=== PATIENT | male | born 1985 ===

== ENCOUNTER 2024-06-18 11:26 | Inpatient (IN) | payer OTHER ==
[~2024-06-18] VITALS: Ht 180.3 cm; Wt 93.9 kg
[~2024-06-18 11:26] MED LIST: CIPROFLOXACIN750 MG PO; CLONAZEPAM1 MG PO; DOCUSATE SODIU100 MG PO; GABAPENTIN800 MG PO; LYRICA50 MG PO; PERCOCET 5/3251 TAB PO; TRAMADOL HCL50 MG PO; ZANTAC300 MG PO
[2024-06-18] MEDS ORDERED: CELEBREX100 MG PO (12:13)
[2024-06-18] MEDS ORDERED: KETO10TA2 PO (12:14)
[2024-06-30] MEDS ORDERED: 0.9 % SODIUM CHLORIDE 1,000 ML IV SCH (07:15)
[2024-06-30] MEDS ORDERED: PROMETHAZINE HCL 50 MG/ML AMPUL IM PRN (07:15)
[2024-06-30] MEDS ORDERED: ENALAPRILAT DIHYDRATE 1.25 MG/ML VIAL IV PRN (07:15)
[2024-06-30] MEDS ORDERED: MEDROLPACK PO (07:26)
[2024-06-30] MEDS ORDERED: CEFAZOLIN SODIUM 1,000 MG VIAL ONE ×2 (07:26→11:02)
[2024-06-30] MEDS ORDERED: VANCOMYCIN HCL 1,000 MG VIAL ONE (07:26)
[2024-06-30] MEDS ORDERED: ACETAMINOPHEN-1 EAC2 PO (07:26)
[2024-06-30] MEDS ORDERED: COLACE100 MG PO (07:27)
[2024-06-30] MEDS ORDERED: ZOFRAN8 MG PO (07:27)
[2024-06-30] MEDS ORDERED: AMOX-CLAV 875-1 EACH PO (07:27)
[2024-06-30] MEDS ORDERED: HEMOSTATIC MATRIX WITH THROMBIN KIT TOP ONE (07:27)
[2024-06-30] MEDS ORDERED: LYRICA150 MG PO (07:28)
[2024-06-30] MEDS ORDERED: METHYLPREDNISOLONE ACETATE 80 MG/ML VIAL ONE (07:51)
[2024-06-30] MEDS ORDERED: DOCUSATE SODIUM 100MG CAP PO SCH (09:00)
[2024-06-30] MEDS ORDERED: CEFAZOLIN SODIUM 1,000 MG in 0.9 % SODIUM CHLORIDE 50 ML IV SCH (09:00)
[2024-06-30] MEDS ORDERED: FAMOtidine 20 MG TABLET PO SCH (09:00)
[2024-06-30] MEDS ORDERED: MORPHINE SULFATE 4 MG/ML VIAL IV SCH (09:00)
[2024-06-30] MEDS ORDERED: VANCOMYCIN HCL 1,000 MG VIAL IR ONE ×2 (09:00)
[2024-06-30] MEDS ORDERED: MORPHINE SULFATE 4 MG,MORPHINE SULFATE 2 MG IV SCH (09:00)
[2024-06-30] MEDS ORDERED: VANCOMYCIN HCL 1,000 MG in 0.9 % SODIUM CHLORIDE 250 ML IV SCH (09:00)
[2024-06-30] MEDS ORDERED: METHYLPREDNISOLONE SOD SUCC 125 MG VIAL IV ONE ×2 (09:00)
[2024-06-30] MEDS ORDERED: TAMSULOSIN HCL 0.4 MG CAP PO SCH (09:00)
[2024-06-30] MEDS ORDERED: METHYLPREDNISOLONE SOD SUCC 125 MG VIAL IV SCH (09:00)
[2024-06-30] MEDS ORDERED: ISOPROPYL ALCOHOL 30 ML OUNCE TOP ONE (09:00)
[2024-06-30] MEDS ORDERED: MORPHINE SULFATE 4 MG/ML VIAL IV ONE ×2 (10:00→10:30)
[2024-06-30 12:50] VITALS: BP 142/80; O2SAT 97
[2024-06-30 13:41] VITALS: BP 142/80
[2024-06-30 16:00] VITALS: BP 132/98; O2SAT 96
[2024-06-30 20:00] VITALS: BP 136/81; O2SAT 95
[2024-06-30] MEDS ORDERED: PREGABALIN PO SCH (21:00)
[2024-06-30] MEDS ORDERED: Pregabalin 50 MG CAPSULE PO SCH (21:00)
[2024-07-01] MEDS ORDERED: SODIUM CHLORIDE 0.45 % 1,000 ML IV SCH
[2024-07-01 04:22] VITALS: BP 144/83; O2SAT 96
[2024-07-01] MEDS ORDERED: ACETAMINOPHEN WITH CODEINE 1 UDTAB TABLET PO PRN (06:00)
[2024-07-01] MEDS ORDERED: OxyCODONE HCL/APAP UD (PERCOCET) PO PRN (06:01)
[2024-07-01 06:37] VITALS: BP 142/79; O2SAT 100
[2024-07-01 06:58] LABS: HEMATOCRIT 46.7 % (39.0-48.0); HEMOGLOBIN 15.6 g/dL (13-16.00); MEAN CELL VOLUME 88.2 fL (80.0-100.00); MEAN CORPUSCULAR HEMOGLOBIN 29.5 pg (27.00-32.0); MEAN CORPUSCULAR HGB CONC 33.4 g/dl (32.0-36.0); PLATELET COUNT 255 K/uL (150-450); RED BLOOD COUNT 5.29 M/uL (4.00-6.00); RED CELL DISTRIBUTION WIDTH 13.3 % (11.5-14.5)
[2024-07-01 07:20] LABS: CALCIUM 9.1 mg/dL (8.5-10.1); CREATININE SERUM 0.93 mg/dL (0.70-1.30); GFR 91.42; POTASSIUM 4.22 mEq/L (3.5-5.1)
[2024-07-01 08:20] VITALS: BP 133/79; O2SAT 98
[2024-07-01 12:21] VITALS: BP 130/80; O2SAT 98
[2024-07-01 15:30] VITALS: BP 112/66; O2SAT 95
[2024-07-01 20:00] VITALS: BP 137/84; O2SAT 96
[2024-07-02 02:36] VITALS: BP 120/67; O2SAT 94
[2024-07-02 06:32] VITALS: BP 119/72; O2SAT 99
[2024-07-02 08:00] VITALS: BP 132/81; O2SAT 98
== END 2024-07-02 09:35 | disposition home or self-care (01) | DRG 455 ==
LOC: O/R 06-30 04:35 → PED 06-30 04:35 → EDSTATUS 06-30 07:00 → CIR.AMB 06-30 07:00 → PED 06-30 11:10 → CIR.AMB 06-30 11:15 → PED 07-02 09:35
PROVIDERS: ADMIT Orthopaedic Surgery Orthopaedic Surgery of the Spine; ATTEND Orthopaedic Surgery Orthopaedic Surgery of the Spine
PROC: 0SG1071 Fusion of 2 or more Lumbar Vertebral Joints with Autologous Tissue Substitute, Posterior Approach, Posterior Column, Open Approach (ICD-10-PCS; 2024-06-30)
PROC: 0ST20ZZ Resection of Lumbar Vertebral Disc, Open Approach (ICD-10-PCS; 2024-06-30)
PROC: 07DR0ZZ Extraction of Iliac Bone Marrow, Open Approach (ICD-10-PCS; 2024-06-30)
PROC: 4A1104G Monitoring of Peripheral Nervous Electrical Activity, Intraoperative, Open Approach (ICD-10-PCS; 2024-06-30)
PROC: XRGC0R7 Fusion of 2 or more Lumbar Vertebral Joints using Custom-Made Anatomically Designed Interbody Fusion Device, Open Approach, New Technology Group 7 (ICD-10-PCS; principal; 2024-06-30 07:00)
DX: M48.062 Spinal stenosis, lumbar region with neurogenic claudication (principal); M43.16 Spondylolisthesis, lumbar region